=== PATIENT | female | born 1955 | race Caucasian/White ===

== ENCOUNTER 2017-04-04 15:57 | Emergency (ER) | payer OTHER, BC ==
[2017-04-04 16:07] VITALS: BP 112/69
--- NOTE | 2017-04-04 17:18 | EDM.PDOC ---
<Nette Sherwood Lizzette - Last Filed: 04/04/17 19:56> ED HPI GENERAL MEDICAL PROBLEM - General Chief Complaint: Lower Extremity Injury/Pain Stated Complaint: Right knee injury Time Seen by Provider: 04/04/17 16:25 - Related Data Allergies Allergy/AdvReac Type Severity Reaction Status Date / Time meloxicam [From Mobic] Allergy Itching Verified 04/04/17 16:10 morphine Allergy Cannot Verified 05/03/15 11:31 Remember Course - Vital Signs Last Recorded V/S: Last Vital Signs Temp 95.7 F 04/04/17 16:06 Pulse 78 04/04/17 16:06 Resp 20 04/04/17 16:06 BP 112/69 04/04/17 16:06 Pulse Ox 97 04/04/17 16:06 Departure - Departure Time of Disposition: 18:06 Disposition: Home, Self-Care 01 Condition: Good Clinical Impression: Contusion, knee - Discharge Information Instructions: Contusion Referrals: Debi Pool PA-C [Primary Care Provider] - Forms: ED Department Discharge Additional Instructions: Rest, ice and elevate Tylenol or Motrin as needed for pain Bertram wrap as tolerated to help with swelling Follow-up with Dr. Coffman next week if not improved. <Mahogany James - Last Filed: 04/04/17 19:58> ED HPI GENERAL MEDICAL PROBLEM - General Source of Information: Reports: Patient, RN Notes Reviewed History Limitations: Reports: No Limitations - History of Present Illness INITIAL COMMENTS - FREE TEXT/NARRATIVE: Therese is a 62 year-old female who presents for the evaluation of right knee pain. 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 She was able to stand up without assistance and immediately noticed swelling to her right knee. She is able to bear weight, but "walks with a limp" due to the injury. She has a history of bilateral knee replacements by Dr. Coffman "10-12 years ago." The patient currently denies pain , but does have pain with movement and palpation to medial aspect of the knee. She reports "tingling" confined to her right knee, but denies any numbness and tingling to her bilateral lower extremities. The patient has been using ice which provides some relief, but has not taking anything for pain. She denies any fever, chills, nausea/vomiting, shortness of breath, or chest pain. Past Medical History HEENT History: Reports: Impaired Vision Cardiovascular History: Reports: High Cholesterol, Hypertension Musculoskeletal History: Reports: Fibromyalgia, Osteoarthritis Psychiatric History: Reports: Anxiety, Depression Endocrine/Metabolic History: Reports: Diabetes, Type II, Hypothyroidism - Past Surgical History HEENT Surgical History: Reports: Adenoidectomy, Tonsillectomy Social & Family History - Tobacco Use Smoking Status *Q: Never Smoker - Caffeine Use Caffeine Use: Reports: Soda - Recreational Drug Use Recreational Drug Use: No Review of Systems - Review of Systems Review Of Systems: See Below Constitutional: Reports: No Symptoms Eyes: Reports: No Symptoms Respiratory: Denies: Shortness of Breath, Wheezing, Cough Cardiovascular: Reports: Edema (right knee edema secondary to fall today ). Denies: Chest Pain Musculoskeletal: Reports: No Symptoms, Joint Pain (right knee joint pain with movement ), Joint Swelling (Right knee; see HPI for details ) ED EXAM, GENERAL - Physical Exam Exam: See Below General Appearance: Alert, No Apparent Distress Head: Normocephalic Respiratory/Chest: Lungs Clear Cardiovascular: Normal Peripheral Pulses, Regular Rate, Rhythm Peripheral Pulses: 3+: Radial (L), Radial (R), Popliteal (L), Popliteal (R), Posterior Tibial (L), Posterior Tibial (R), Dorsalis Pedis (L), Dorsalis Pedis ( R) GI/Abdominal: Normal Bowel Sounds Extremities: No Pedal Edema, Normal Capillary Refill, Joint Swelling (severe swelling confined to rignt knee, pain with palpation to medial aspect of knee joint, ) Neurological: Alert, Oriented, Normal Cognition Psychiatric: Normal Affect Skin Exam: Warm, Dry, Intact (small skin tear to right forearm-secondary to fall , no redness, warmth, drainage, or bleeding ) Course - Re-Assessments/Exams Free Text/Narrative Re-Assessment/Exam: Right knee xray series was completed and noticed questionable step off on patella so the images were reviewed by the radiologist. The results indicate old healed fractures within the tibial and fibular diaphysis with no acute fractures. The final impression indicates anterior soft tissue swelling with possible small joint effusion; no acute bony abnormalities. Pain and swelling are confined to the knee with normal pulses; no concern for injury proximal and medial injury related to internal hardware. The patient was informed of the xray results. Her right knee was bertram wrapped and instructed to elevate and ice the extremity. She should follow-up with Dr. Coffman if her symptoms do not improve by next week. The patient verbalized understanding of the treatment plan and is in agreement.
--- NOTE | 2017-04-04 17:50 | CR ---
Right knee: 4 views of the right knee were obtained. Comparison: No previous knee exam. Knee prosthesis is seen. Components are aligned. Old healed fractures are seen within the tibial and fibular diaphysis. Soft tissue swelling is seen anteriorly. Small joint effusion is likely present. I do not see an acute fracture. No dislocation is seen. Impression: 1. Anterior soft tissue swelling with possible small joint effusion. 2. Other findings as noted above. 3. No acute bony abnormality is identified. Diagnostic code #2
== END 2017-04-04 18:16 | disposition home or self-care (01) ==
LOC: JD.ED 15:57
DX: S80.01XA Contusion of right knee, initial encounter (principal); I10 Essential (primary) hypertension; E78.00 Pure hypercholesterolemia, unspecified; M19.90 Unspecified osteoarthritis, unspecified site; F41.9 Anxiety disorder, unspecified; F32.9 Major depressive disorder, single episode, unspecified; E11.9 Type 2 diabetes mellitus without complications; E03.9 Hypothyroidism, unspecified; Z88.5 Allergy status to narcotic agent; Z88.8 Allergy status to other drugs, medicaments and biological substances; Z96.651 Presence of right artificial knee joint; Z96.652 Presence of left artificial knee joint; Z98.890 Other specified postprocedural states; W01.0XXA Fall on same level from slipping, tripping and stumbling without subsequent striking against object, initial encounter
CPT/HCPCS: 73564-26-RT; 73564-RT; 99282; 99284

== ENCOUNTER 2022-04-15 13:57 | Emergency (ER) | payer BC ==
[2022-04-15 15:05] VITALS: BP 91/66; PULSE 78
== END 2022-04-15 16:00 | disposition home or self-care (01) ==
LOC: JD.ED 13:57
DX: R04.0 Epistaxis (principal); E78.00 Pure hypercholesterolemia, unspecified; I10 Essential (primary) hypertension; E11.9 Type 2 diabetes mellitus without complications; E03.9 Hypothyroidism, unspecified; M19.90 Unspecified osteoarthritis, unspecified site; Z88.5 Allergy status to narcotic agent; Z88.8 Allergy status to other drugs, medicaments and biological substances; Z86.16 Personal history of COVID-19
CPT/HCPCS: 30901; 99283; C9046; 99282

== ENCOUNTER 2024-08-31 07:58 | Day surgery (SDC) | payer MEDICARE, OTHER ==
[~2024-08-31 07:58] MED LIST: Ondansetron 4 MG/2 ML SDV IVPUSH PRN; Sodium Chloride 0.9% 10 ML Syringe FLUSH PRN; Sodium Chloride 0.9% 10 ML Syringe FLUSH SCH; fentaNYL 100 MCG/2 ML SDV IVPUSH PRN
[2024-08-31] MEDS: Lactated Ringers 1,000 ML IV SCH (08:25)
[2024-08-31] MEDS ORDERED: Esmolol 100 MG/10 ML SDV ONE (08:31)
[2024-08-31] MEDS ORDERED: Ropivacaine 0.5% 5 MG/ML 30 ML SDV ONE (08:31)
[2024-08-31] MEDS ORDERED: ePHEDrine 50 MG/ML SDV ONE (08:31)
[2024-08-31] MEDS ORDERED: EPINEPHrine 1 MG/ML SDV ONE (08:31)
[2024-08-31] MEDS ORDERED: Sugammadex Sodium 200 MG/2 ML VIAL IV ONE ×2 (08:31→10:30)
[2024-08-31] MEDS ORDERED: Midazolam 1 MG/ML 2 ML SDV ONE (08:31)
[2024-08-31] MEDS ORDERED: Propofol 200 MG/20 ML SDV ONE (08:31)
[2024-08-31] MEDS ORDERED: Rocuronium 50 MG/5 ML Vial ONE (08:31)
[2024-08-31] MEDS ORDERED: Lidocaine 1% 5 ML VIAL ONE (08:31)
[2024-08-31] MEDS ORDERED: Dexamethasone 4 MG/ML 5 ML MDV ONE (08:31)
[2024-08-31] MEDS ORDERED: Glycopyrrolate 0.2 MG/ML 2 ML SDV ONE (08:31)
[2024-08-31] MEDS ORDERED: dexmedeTOMIDine HCl 200 MCG/2 ML SDV ONE (08:31)
[2024-08-31] MEDS ORDERED: ceFAZolin 2 GM Vial ONE (08:31)
[2024-08-31] MEDS: Acetaminophen/Codeine 300-30 MG Tab PO PRN (13:08)
[2024-08-31] MEDS: Tranexamic Acid 1,000 MG/10 ML Vial ONE (14:05)
[2024-08-31] MEDS: VANCOmycin 1 GM SDV ONE (14:07)
[2024-08-31 14:36] VITALS: BP 143/83; PULSE 75
== END 2024-08-31 15:12 | disposition home or self-care (01) ==
LOC: JD.SDS 07:58
PROVIDERS: ATTEND Orthopaedic Surgery
DX: M19.012 Primary osteoarthritis, left shoulder (principal); F41.9 Anxiety disorder, unspecified; F32.A Depression, unspecified; K21.9 Gastro-esophageal reflux disease without esophagitis; I10 Essential (primary) hypertension; E11.9 Type 2 diabetes mellitus without complications; E03.9 Hypothyroidism, unspecified; Z79.890 Hormone replacement therapy; Z79.899 Other long term (current) drug therapy; Z88.8 Allergy status to other drugs, medicaments and biological substances; Z88.5 Allergy status to narcotic agent
CPT/HCPCS: 23472; 76000; 97116; 97161; A9270; J0171; J0690; J1100; J2250; J2704; J2795; J3490; J7120